=== PATIENT | male | born 1995 | race Two or more races ===

== ENCOUNTER 2017-08-30 15:30 | Inpatient (IN) | payer BC ==
[2017-08-30 15:34] VITALS: BMI 23.8
--- NOTE | 2017-08-30 16:12 | HP ---
COWS - Scale Resting Pulse: 1= [place] 81-100 Sweatin=Flushed/Facial Moisture Restless Observation: 3= Extraneous Movement Pupil Size: 2= Moderately Dilated Bone or Joint Aches: 2= Severe Diffuse Aches Runny Nose/ Eye Tearin= Runny Nose/Eyes GI Upset > 30mins: 3= Vomiting/Diarrhea Tremor Observation: 2= Slight Tremor Visible Yawning Observation: 2= >3x During Session Anxiety or Irritability: 2=Irritable/Anxious Goose Flesh Skin: 0=Smooth Skin COWS Score: 21 CIWA Score - CIWA Score Nausea/Vomitin Muscle Tremors: 3 Anxiety: 3 Agitation: 3 Paroxysmal Sweats: 2 Orientation: 0-Oriented Tacttile Disturbances: 2-Mild Itch/Numbness/Burn Auditory Disturbances: 2-Mild Harshness/Frighten Visual Disturbances: 2-Mild Sensitivity Headache: 2-Mild CIWA-Ar Total Score: 22 Admission ROS BHS - HPI Chief Complaint: i need help to stop using heroin,alcohol,xanax and cocaine Allergies/Adverse Reactions: Allergies Allergy/AdvReac Type Severity Reaction Status Date / Time Penicillins Allergy Verified 08/30/17 16:09 History of Present Illness: i need help to stop using heroin,xanax,alcohol and cocaine this 22 years old male with heroin,xanxa,cocaine and alcohol dependence,seeking detox,last treatment [facility] in 12/08 history of hepatitis c no treatment anxiety,depression,ptsd longest period of sobriety 5 years Exam Limitations: No Limitations - Ebola screening Have you traveled outside of the country in the last 21 days: No Have you had contact with anyone from an Ebola affected area: No Have you been sick,other than usual withdrawal symptoms: No Do you have a fever: No - Review of Systems Constitutional: Chills, Loss of Appetite, Malaise, Night Sweats, Changes in sleep, Weakness, Unintentional Wgt. Loss EENT: reports: Tearing, Nose Congestion Respiratory: reports: No Symptoms reported Cardiac: reports: Palpitations GI: reports: Diarrhea, Nausea, Vomiting, Abdominal cramping : reports: No Symptoms Reported Musculoskeletal: reports: Back Pain, Joint Pain, Muscle Pain, Joint Stiffness Integumentary: reports: Dryness Neuro: reports: Headache, Tremors Endocrine: reports: No Symptoms Reported Hematology: reports: No Symptoms Reported Psychiatric: reports: Anxious (ptsd), Depressed Patient History - Patient Medical History Hx Anemia: No Hx Asthma: No Hx Chronic Obstructive Pulmonary Disease (COPD): No Hx Cancer: No Hx Cardiac Disorders: No Hx Congestive Heart Failure: No Hx Hypertension: No Hx Hypercholesterolemia: No Hx Pacemaker: No HX Cerebrovascular Accident: No Hx Seizures: No Hx Dementia: No Hx Diabetes: No Hx Gastrointestinal Disorders: No Hx Liver Disease: No Hx Genitourinary Disorders: No Hx Sexually Transmitted Disorders: No Hx Renal Disease (ESRD): No Hx Thyroid Disease: No Hx Human Immunodeficiency Virus (HIV): No (unknown,never been tested before) Hx Hepatitis C: Yes (no treatent) Hx Depression: Yes (anxiety) Hx Suicide Attempt: No Hx Bipolar Disorder: No Hx Schizophrenia: No Other Medical History: insomnia,no siuicidal,no homicidal - Patient Surgical History Past Surgical History: No - PPD History Previous Implant?: Yes Documented Results: Negative w/o proof Implanted On Prior [facility] Admission?: No PPD to be Administered?: Yes - Smoking Cessation Smoking history: Current every day smoker Have you smoked in the past 12 months: Yes Aproximately how many cigarettes per day: 20 Hx Chewing Tobacco Use: No Initiated information on smoking cessation: Yes 'Breaking Loose' booklet given: 08/30/17 - Substance & Tx. History Hx Alcohol Use: Yes Hx Substance Use: Yes Substance Use Type: Alcohol, Cocaine, Heroin, Tranquilizers Hx Substance Use Treatment: Yes ([facility] 12/08) - Substances Abused Heroin Route: Injection Frequency: Daily Amount used: 25 to 30 bags/day Age of first use: 13 Date of Last Use: 08/30/17 Alprazolam (Xanax) Route: Oral Frequency: Daily Amount used: 6 to 8 mgs Age of first use: 13 Date of Last Use: 08/30/17 Alcohol Route: Oral Frequency: Daily Amount used: 1 pint of michelle/6 of 40 ozs of beer Age of first use: 6 Date of Last Use: 08/30/17 Cocaine Route: Injection Frequency: Daily Amount used: 100$ Age of first use: 13 Date of Last Use: 08/30/17 Family Disease History - Family Disease History Family History: Denies Admission Physical Exam BHS - Vital Signs Vital Signs: Vital Signs - 24 hr 08/30/17 15:33 Temperature 95.4 F L Pulse Rate 88 Respiratory 16 Rate Blood Pressure 111/66 - Physical General Appearance: Yes: Moderate Distress, Tremorous, Irritable, Sweating, Anxious HEENTM: Yes: Normocephalic, CON[place], Pharynx Normal Respiratory: Yes: Lungs Clear, Normal Breath Sounds, No Respiratory Distress Neck: Yes: Within Normal Limits, Supple, Trachea in good position Breast: Yes: Within Normal Limits Cardiology: Yes: Within Normal Limits, Regular Rhythm, Regular Rate, S1, S2 Abdominal: Yes: Within Normal Limits, Normal Bowel Sounds, Non Tender, Flat, Soft Genitourinary: Yes: Within Normal Limits Back: Yes: Normal Inspection, Muscle Spasm Musculoskeletal: Yes: Within Normal Limits, full range of Motion, Muscle Pain Extremities: Yes: Normal Range of Motion, Tremors Neurological: Yes: Within Normal Limits, sheriff sergeant II-XII NML intact, Fully Oriented, Alert, Motor Strength 5/5 Integumentary: Yes: Dry, Track Wagner Lymphatic: Yes: Within Normal Limits - Diagnostic (1) Opioid dependence with withdrawal Current Visit: Yes Status: Acute (2) Alcohol dependence with uncomplicated withdrawal Current Visit: Yes Status: Acute (3) Uncomplicated sedative, hypnotic or anxiolytic withdrawal Current Visit: Yes Status: Acute (4) Cocaine dependence Current Visit: Yes Status: Acute (5) Hepatitis C Current Visit: Yes Status: Acute (6) Insomnia secondary to depression with anxiety Current Visit: Yes Status: Acute (7) PTSD (post-traumatic stress disorder) Current Visit: Yes Status: Acute (8) ADHD Current Visit: Yes Status: Acute (9) Nicotine dependence Current Visit: Yes Status: Acute (10) Weight loss Current Visit: Yes Status: Acute Cleared for Admission [facility] - Detox or Rehab [facility] Level of Care: Medically Managed Detox Regimen/Protocol: Methadone/Valium [facility] Breath Alcohol Content Breath Alcohol Content: 0 Urine Drug Screen - Results Drug Screen Negative: No Urine Drug Screen Results: MONICA-Cocaine, OPI-Opiates, BZO-Benzodiazepines, OXY- Oxycodone
[2017-08-30] MEDS ORDERED: MENTHOL/PHENOL 1 EACH UD MM PRN (16:27)
[2017-08-30] MEDS ORDERED: ACETAMINOPHEN 325 MG TABLET (FP) PO PRN (16:27)
[2017-08-30] MEDS ORDERED: MAGNESIUM CITRATE 300 ML BOTTLE PO PRN (16:27)
[2017-08-30] MEDS ORDERED: MAGNESIUM HYDROX 2400MG/30ML ORAL SUSPENSION 30 ML CUP PO PRN (16:27)
[2017-08-30] MEDS ORDERED: MAG HYDROX/AL HYDROX/SIMETH 30 ML UNIT-DOSE CUP PO PRN (16:27)
[2017-08-30] MEDS ORDERED: diazePAM 5 MG TABLET PO ONE (16:27)
[2017-08-30] MEDS ORDERED: METHADONE HCL 10 MG TABLET (FOR DETOX USE ONLY) PO ONE ×2 (16:27→23:00)
[2017-08-30] MEDS ORDERED: hydrOXYzine PAMOATE 25 MG CAPSULE (FP) PO PRN (16:27)
[2017-08-30] MEDS ORDERED: P-EPHED 60MG/TRIPROLIDI 2.5MG TABLET PO PRN (16:27)
[2017-08-30] MEDS ORDERED: LOPERAMIDE HCL 2 MG CAPSULE PO PRN (16:27)
[2017-08-30] MEDS ORDERED: IBUPROFEN 400 MG TABLET (FP) PO PRN (16:27)
[2017-08-30] MEDS ORDERED: guaiFENesin/D-METHORPHAN HB 10 ML UNIT-DOSE CUPS PO PRN (16:27)
[2017-08-30] MEDS: NICOTINE 21 MG/24 HOURS TOPICAL PATCH TD SCH (18:29)
[2017-08-30] MEDS: THIAMINE HCL 100 MG TABLET (FP) PO SCH (22:21)
[2017-08-30] MEDS: diazePAM 5 MG TABLET PO SCH (22:22)
[2017-08-30] MEDS: NICOTINE POLACRILEX 2 MG GUM BC PRN (22:22)
[2017-08-30] MEDS: cloNIDine HCL 0.1 MG TABLET PO SCH (22:25)
[2017-08-31] MEDS: diazePAM 5 MG TABLET PO SCH ×3 (05:33→22:15)
[2017-08-31] MEDS: CYCLOBENZAPRINE HCL 10 MG TABLET (FP) PO PRN ×2 (05:33→22:16)
[2017-08-31] MEDS ORDERED: METHADONE HCL 10 MG TABLET (FOR DETOX USE ONLY) PO SCH (10:00)
[2017-08-31 10:04] LABS: URINE APPEARANCE CLEAR; URINE BILIRUBIN NEGATIVE (NEGATIVE); URINE BLOOD NEGATIVE (NEGATIVE); URINE COLOR AMBER; URINE GLUCOSE (UA) NEGATIVE (NEGATIVE); URINE KETONE NEGATIVE (NEGATIVE); URINE LEUK ESTERASE TRACE (NEGATIVE); URINE NITRITE NEGATIVE (NEGATIVE); URINE PROTEIN NEGATIVE (NEGATIVE); URINE UROBILINOGEN 4.0 E.U/dl mg/dL (0.2-1.0)
[2017-08-31 10:09] LABS: HEMATOCRIT 35.8 % (35.4-49); HEMOGLOBIN 11.9 GM/dL (11.7-16.9); MCH 31.4 pg (25.7-33.7); MCHC 33.2 g/dl (32.0-35.9); MEAN CELL VOLUME 94.6 fl (80-96); MEAN PLT VOLUME 8.2 fl (7.5-11.1); PLATELET COUNT 238 K/MM3 (134-434); RBC 3.78 M/mm3 (4.00-5.60); RDW 12.2 % (11.9-15.9); WHITE BLOOD COUNT 5.6 K/mm3 (4.0-10.0)
[2017-08-31 10:13] LABS: URINE MUCUS MANY
[2017-08-31 10:13] LABS: CHLORIDE 105 mmol/L (98-107); POTASSIUM 4.5 mmol/L (3.5-5.1); SODIUM 140 mmol/L (136-145)
[2017-08-31 10:22] LABS: ALBUMIN 3.3 g/dl (3.4-5.0); ALK PHOS 52 U/L (45-117); ANION GAP 6 (8-16); BILIRUBIN,TOTAL 0.6 mg/dL (0.2-1.0); BLOOD UREA NITROGEN 14 mg/dL (7-18); CALCIUM 8.8 mg/dL (8.5-10.1); CO2 29 mmol/L (21-32); CREATININE 0.8 mg/dL (0.7-1.3); GLUCOSE,RANDOM 93 mg/dL (74-106); SGOT/AST 24 U/L (15-37); SGPT/ALT 51 U/L (12-78); TOT PROT 6.8 g/dl (6.4-8.2)
[2017-08-31] MEDS: diazePAM 5 MG TABLET PO PRN ×2 (10:43→17:46)
[2017-08-31] MEDS: PRENATAL VITAMINS W/ FOLIC ACID TABLET (FP) PO SCH (10:43)
[2017-08-31] MEDS: NICOTINE 21 MG/24 HOURS TOPICAL PATCH TD SCH (10:43)
[2017-08-31] MEDS: cloNIDine HCL 0.1 MG TABLET PO SCH ×2 (10:43→22:15)
[2017-08-31] MEDS: NICOTINE POLACRILEX 2 MG GUM BC PRN ×4 (10:44→22:18)
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
--- NOTE | 2017-08-31 11:43 | PN ---
S CIWA - CIWA Score Nausea/Vomitin Muscle Tremors: 4-Moderate,w/Arms Extend Anxiety: 4-Mod. Anxious/Guarded Agitation: 4-Moderately Restless Paroxysmal Sweats: 3 Orientation: 0-Oriented Tacttile Disturbances: 0-None Auditory Disturbances: 0-None Visual Disturbances: 0-None Headache: 0-None Present CIWA-Ar Total Score: 18 BHS COWS - Scale Resting Pulse: 1= [place] 81-100 Sweatin= Chills/Flushing Restless Observation: 3= Extraneous Movement Pupil Size: 0= Normal to Room Light Bone or Joint Aches: 2= Severe Diffuse Aches Runny Nose/ Eye Tearin= Runny Nose/Eyes GI Upset > 30mins: 1= Stomach Cramp Tremor Observation of Outstretched Hands: 2= Slight Tremor Visible Yawning Observation: 0= None Anxiety or Irritability: 2=Irritable/Anxious Goose Flesh Skin: 0=Smooth Skin COWS Score: 14 BHS Progress Note (SOAP) Subjective: Stomach ache, nausea, tremor, sweating, interrupted sleep Objective: 08/31/17 11:39 Last Vital Signs Temp Pulse Resp BP Pulse Ox 96.6 F L 90 16 97/57 08/31/17 11:03 08/31/17 11:03 08/31/17 11:03 08/31/17 11:03 B/P:hypotension noted, asymptomatic (normal as per patient, stated his blood pressure usually runs on low side) Laboratory Tests 08/31/17 08/31/17 08/31/17 07:00 07:00 07:00 WBC 5.6 RBC 3.78 L Hgb 11.9 Hct 35.8 MCV 94.6 MCH 31.4 MCHC 33.2 RDW 12.2 Plt Count 238 MPV 8.2 Sodium 140 Potassium 4.5 Chloride 105 Carbon Dioxide 29 Anion Gap 6 L BUN 14 Creatinine 0.8 Creat Clearance w eGFR > 60 Random Glucose 93 Calcium 8.8 Total Bilirubin 0.6 AST 24 ALT 51 Alkaline Phosphatase 52 Total Protein 6.8 Albumin 3.3 L Urine Color Urine Appearance Urine pH Ur Specific [place] Urine Protein Urine Glucose (UA) Urine Ketones Urine Blood Urine Nitrite Urine Bilirubin Urine Urobilinogen Ur Leukocyte Esterase Urine WBC (Auto) Urine RBC (Auto) Urine Mucus RPR Titer Nonreactive 08/31/17 08:25 WBC RBC Hgb Hct MCV MCH MCHC RDW Plt Count MPV Sodium Potassium Chloride Carbon Dioxide Anion Gap BUN Creatinine Creat Clearance w eGFR Random Glucose Calcium Total Bilirubin AST ALT Alkaline Phosphatase Total Protein Albumin Urine Color Rocio Urine Appearance Clear Urine pH 6.0 Ur Specific [place] 1.028 Urine Protein Negative Urine Glucose (UA) Negative Urine Ketones Negative Urine Blood Negative Urine Nitrite Negative Urine Bilirubin Negative Urine Urobilinogen 4.0 e.u/dl Ur Leukocyte Esterase Trace Urine WBC (Auto) 1 Urine RBC (Auto) 11 Urine Mucus Many RPR Titer Labs noted Assessment: 08/31/17 11:41 Withdrawal symptoms Noted with hypotension Plan: Continue detox Hypotension: asymptomatic, encouraged to drink more water (water pitcher ordered ), continue to monitor
[2017-08-31] MEDS ORDERED: FLU VACCINE QUAD 60 MCG/0.5 ML (MDV 17-18) IM ONE (12:00)
--- NOTE | 2017-08-31 12:45 | EKG ---
Test Reason : Blood Pressure : / mmHG Vent. Rate : 086 BPM Atrial Rate : 086 BPM P-R Int : 152 ms QRS Dur : 080 ms QT Int : 354 ms P-R-T Axes : 053 085 040 degrees QTc Int : 423 ms NORMAL SINUS RHYTHM NORMAL ECG NO PREVIOUS ECGS AVAILABLE Confirmed by RUTH SPEAR MD ([id number]) on 08/31/2017 12:45:20 PM Referred By: Confirmed By:RUTH SPEAR MD
[2017-08-31] MEDS: THIAMINE HCL 100 MG TABLET (FP) PO SCH (22:14)
[2017-08-31] MEDS: ZOLPIDEM TARTRATE 10 MG TABLET (PARK CARE ONLY) PO PRN (22:15)
[2017-09-01] MEDS: diazePAM 5 MG TABLET PO SCH ×2 (10:49→22:09)
[2017-09-01] MEDS: cloNIDine HCL 0.1 MG TABLET PO SCH ×2 (10:49→22:10)
[2017-09-01] MEDS: PRENATAL VITAMINS W/ FOLIC ACID TABLET (FP) PO SCH (10:49)
[2017-09-01] MEDS: METHADONE HCL 5 MG TABLET (FOR DETOX USE ONLY) PO SCH (10:49)
[2017-09-01] MEDS: NICOTINE 21 MG/24 HOURS TOPICAL PATCH TD SCH (10:50)
[2017-09-01] MEDS: NICOTINE POLACRILEX 2 MG GUM BC PRN ×3 (10:50→22:11)
--- NOTE | 2017-09-01 12:31 | PN ---
[facility] CIWA - CIWA Score Nausea/Vomitin Muscle Tremors: 3 Anxiety: 4-Mod. Anxious/Guarded Agitation: 4-Moderately Restless Paroxysmal Sweats: 3 Orientation: 0-Oriented Tacttile Disturbances: 1-Very Mild Itch/Numbness Auditory Disturbances: 0-None Visual Disturbances: 0-None Headache: 0-None Present CIWA-Ar Total Score: 18 S COWS - Scale Resting Pulse: 1= [place] 81-100 Sweatin= Chills/Flushing Restless Observation: 3= Extraneous Movement Pupil Size: 0= Normal to Room Light Bone or Joint Aches: 1= Mild Discomfort Runny Nose/ Eye Tearin= Nasal Congestion GI Upset > 30mins: 1= Stomach Cramp Tremor Observation of Outstretched Hands: 2= Slight Tremor Visible Yawning Observation: 1= 1-2x During Session Anxiety or Irritability: 2=Irritable/Anxious Goose Flesh Skin: 0=Smooth Skin COWS Score: 13 [facility] Progress Note (SOAP) Subjective: Nausea, sweating, tremor, anxious Objective: 09/01/17 12:30 Last Vital Signs Temp Pulse Resp BP Pulse Ox 97.5 F L 83 16 110/58 09/01/17 10:00 09/01/17 10:00 09/01/17 10:00 09/01/17 10:00 Laboratory Tests 08/31/17 08/31/17 08/31/17 07:00 07:00 07:00 WBC 5.6 RBC 3.78 L Hgb 11.9 Hct 35.8 MCV 94.6 MCH 31.4 MCHC 33.2 RDW 12.2 Plt Count 238 MPV 8.2 Sodium 140 Potassium 4.5 Chloride 105 Carbon Dioxide 29 Anion Gap 6 L BUN 14 Creatinine 0.8 Creat Clearance w eGFR > 60 Random Glucose 93 Calcium 8.8 Total Bilirubin 0.6 AST 24 ALT 51 Alkaline Phosphatase 52 Total Protein 6.8 Albumin 3.3 L Urine Color Urine Appearance Urine pH Ur Specific [place] Urine Protein Urine Glucose (UA) Urine Ketones Urine Blood Urine Nitrite Urine Bilirubin Urine Urobilinogen Ur Leukocyte Esterase Urine WBC (Auto) Urine RBC (Auto) Urine Mucus RPR Titer Nonreactive 08/31/17 08:25 WBC RBC Hgb Hct MCV MCH MCHC RDW Plt Count MPV Sodium Potassium Chloride Carbon Dioxide Anion Gap BUN Creatinine Creat Clearance w eGFR Random Glucose Calcium Total Bilirubin AST ALT Alkaline Phosphatase Total Protein Albumin Urine Color Rocio Urine Appearance Clear Urine pH 6.0 Ur Specific [place] 1.028 Urine Protein Negative Urine Glucose (UA) Negative Urine Ketones Negative Urine Blood Negative Urine Nitrite Negative Urine Bilirubin Negative Urine Urobilinogen 4.0 e.u/dl Ur Leukocyte Esterase Trace Urine WBC (Auto) 1 Urine RBC (Auto) 11 Urine Mucus Many RPR Titer Labs noted Assessment: 09/01/17 12:30 Withdrawal symptoms Plan: Continue detox
[2017-09-01] MEDS: diazePAM 5 MG TABLET PO PRN ×2 (13:58→18:03)
[2017-09-01] MEDS: CYCLOBENZAPRINE HCL 10 MG TABLET (FP) PO PRN ×2 (13:58→22:10)
[2017-09-01] MEDS: THIAMINE HCL 100 MG TABLET (FP) PO SCH (22:10)
[2017-09-01] MEDS: ZOLPIDEM TARTRATE 10 MG TABLET (PARK CARE ONLY) PO PRN (22:10)
[2017-09-02] MEDS: NICOTINE 21 MG/24 HOURS TOPICAL PATCH TD SCH (10:35)
[2017-09-02] MEDS: diazePAM 5 MG TABLET PO SCH ×2 (10:35→22:11)
[2017-09-02] MEDS: METHADONE HCL 5 MG TABLET (FOR DETOX USE ONLY) PO SCH (10:35)
[2017-09-02] MEDS: PRENATAL VITAMINS W/ FOLIC ACID TABLET (FP) PO SCH (10:35)
[2017-09-02] MEDS: cloNIDine HCL 0.1 MG TABLET PO SCH (10:37)
[2017-09-02] MEDS: NICOTINE POLACRILEX 2 MG GUM BC PRN ×2 (13:23→22:13)
--- NOTE | 2017-09-02 13:53 | PN ---
BHS Progress Note (SOAP) Subjective: ANXIETY,HOT/COLD FLASHES,STOMACH CRAMPS,NIGHT SWEATS. Objective: 09/02/17 13:53 Vital Signs Temperature 95.8 F L 09/02/17 13:10 Pulse Rate 84 09/02/17 13:10 Respiratory Rate 18 09/02/17 13:10 Blood Pressure 92/63 09/02/17 13:10 O2 Sat by Pulse Oximetry (%) Laboratory Last Values WBC 5.6 K/mm3 (4.0-10.0) 08/31/17 07:00 RBC 3.78 M/mm3 (4.00-5.60) L 08/31/17 07:00 Hgb 11.9 GM/dL (11.7-16.9) 08/31/17 07:00 Hct 35.8 % (35.4-49) 08/31/17 07:00 MCV 94.6 fl (80-96) 08/31/17 07:00 MCH 31.4 pg (25.7-33.7) 08/31/17 07:00 MCHC 33.2 g/dl (32.0-35.9) 08/31/17 07:00 RDW 12.2 % (11.9-15.9) 08/31/17 07:00 Plt Count 238 K/MM3 (134-434) 08/31/17 07:00 MPV 8.2 fl (7.5-11.1) 08/31/17 07:00 Sodium 140 mmol/L (136-145) 08/31/17 07:00 Potassium 4.5 mmol/L (3.5-5.1) 08/31/17 07:00 Chloride 105 mmol/L (98-107) 08/31/17 07:00 Carbon Dioxide 29 mmol/L (21-32) 08/31/17 07:00 Anion Gap 6 (8-16) L 08/31/17 07:00 BUN 14 mg/dL (7-18) 08/31/17 07:00 Creatinine 0.8 mg/dL (0.7-1.3) 08/31/17 07:00 Creat Clearance w eGFR > 60 (>60) 08/31/17 07:00 Random Glucose 93 mg/dL (74-106) 08/31/17 07:00 Calcium 8.8 mg/dL (8.5-10.1) 08/31/17 07:00 Total Bilirubin 0.6 mg/dL (0.2-1.0) 08/31/17 07:00 AST 24 U/L (15-37) 08/31/17 07:00 ALT 51 U/L (12-78) 08/31/17 07:00 Alkaline Phosphatase 52 U/L (45-117) 08/31/17 07:00 Total Protein 6.8 g/dl (6.4-8.2) 08/31/17 07:00 Albumin 3.3 g/dl (3.4-5.0) L 08/31/17 07:00 Urine Color Rocio 08/31/17 08:25 Urine Appearance Clear 08/31/17 08:25 Urine pH 6.0 (5.0-8.0) 08/31/17 08:25 Ur Specific [place] 1.028 (1.001-1.035) 08/31/17 08:25 Urine Protein Negative (NEGATIVE) 08/31/17 08:25 Urine Glucose (UA) Negative (NEGATIVE) 08/31/17 08:25 Urine Ketones Negative (NEGATIVE) 08/31/17 08:25 Urine Blood Negative (NEGATIVE) 08/31/17 08:25 Urine Nitrite Negative (NEGATIVE) 08/31/17 08:25 Urine Bilirubin Negative (NEGATIVE) 08/31/17 08:25 Urine Urobilinogen 4.0 e.u/dl mg/dL (0.2-1.0) 08/31/17 08:25 Ur Leukocyte Esterase Trace (NEGATIVE) 08/31/17 08:25 Urine WBC (Auto) 1 /hpf (3-5) 08/31/17 08:25 Urine RBC (Auto) 11 /hpf (0-3) 08/31/17 08:25 Urine Mucus Many 08/31/17 08:25 RPR Titer Nonreactive (NONREACTIVE) 08/31/17 07:00 Assessment: 09/02/17 13:53 WITHDRAWAL SX Plan: CONTINUE DETOX
[2017-09-02] MEDS: diazePAM 5 MG TABLET PO PRN (14:05)
[2017-09-02] MEDS: THIAMINE HCL 100 MG TABLET (FP) PO SCH (22:11)
[2017-09-02] MEDS: ZOLPIDEM TARTRATE 10 MG TABLET (PARK CARE ONLY) PO PRN (22:11)
[2017-09-02] MEDS: CYCLOBENZAPRINE HCL 10 MG TABLET (FP) PO PRN (22:12)
[2017-09-03] MEDS ORDERED: diazePAM 5 MG TABLET PO SCH (10:00)
[2017-09-03] MEDS ORDERED: METHADONE HCL 10 MG TABLET (FOR DETOX USE ONLY) PO SCH (10:00)
[2017-09-03] MEDS: PRENATAL VITAMINS W/ FOLIC ACID TABLET (FP) PO SCH (10:29)
[2017-09-03] MEDS: NICOTINE 21 MG/24 HOURS TOPICAL PATCH TD SCH (10:29)
--- NOTE | 2017-09-03 11:54 | PN ---
BHS Progress Note (SOAP) Subjective: Night sweats, hot and cold flashes, anxiety, fatigue Objective: 09/03/17 11:53 Last Vital Signs Temp Pulse Resp BP Pulse Ox 98.0 F 87 18 121/61 09/03/17 09:32 09/03/17 09:32 09/03/17 09:32 09/03/17 09:32 Laboratory Last Values WBC 5.6 K/mm3 (4.0-10.0) 08/31/17 07:00 RBC 3.78 M/mm3 (4.00-5.60) L 08/31/17 07:00 Hgb 11.9 GM/dL (11.7-16.9) 08/31/17 07:00 Hct 35.8 % (35.4-49) 08/31/17 07:00 MCV 94.6 fl (80-96) 08/31/17 07:00 MCH 31.4 pg (25.7-33.7) 08/31/17 07:00 MCHC 33.2 g/dl (32.0-35.9) 08/31/17 07:00 RDW 12.2 % (11.9-15.9) 08/31/17 07:00 Plt Count 238 K/MM3 (134-434) 08/31/17 07:00 MPV 8.2 fl (7.5-11.1) 08/31/17 07:00 Sodium 140 mmol/L (136-145) 08/31/17 07:00 Potassium 4.5 mmol/L (3.5-5.1) 08/31/17 07:00 Chloride 105 mmol/L (98-107) 08/31/17 07:00 Carbon Dioxide 29 mmol/L (21-32) 08/31/17 07:00 Anion Gap 6 (8-16) L 08/31/17 07:00 BUN 14 mg/dL (7-18) 08/31/17 07:00 Creatinine 0.8 mg/dL (0.7-1.3) 08/31/17 07:00 Creat Clearance w eGFR > 60 (>60) 08/31/17 07:00 Random Glucose 93 mg/dL (74-106) 08/31/17 07:00 Calcium 8.8 mg/dL (8.5-10.1) 08/31/17 07:00 Total Bilirubin 0.6 mg/dL (0.2-1.0) 08/31/17 07:00 AST 24 U/L (15-37) 08/31/17 07:00 ALT 51 U/L (12-78) 08/31/17 07:00 Alkaline Phosphatase 52 U/L (45-117) 08/31/17 07:00 Total Protein 6.8 g/dl (6.4-8.2) 08/31/17 07:00 Albumin 3.3 g/dl (3.4-5.0) L 08/31/17 07:00 Urine Color Rocio 08/31/17 08:25 Urine Appearance Clear 08/31/17 08:25 Urine pH 6.0 (5.0-8.0) 08/31/17 08:25 Ur Specific [place] 1.028 (1.001-1.035) 08/31/17 08:25 Urine Protein Negative (NEGATIVE) 08/31/17 08:25 Urine Glucose (UA) Negative (NEGATIVE) 08/31/17 08:25 Urine Ketones Negative (NEGATIVE) 08/31/17 08:25 Urine Blood Negative (NEGATIVE) 08/31/17 08:25 Urine Nitrite Negative (NEGATIVE) 08/31/17 08:25 Urine Bilirubin Negative (NEGATIVE) 08/31/17 08:25 Urine Urobilinogen 4.0 e.u/dl mg/dL (0.2-1.0) 08/31/17 08:25 Ur Leukocyte Esterase Trace (NEGATIVE) 08/31/17 08:25 Urine WBC (Auto) 1 /hpf (3-5) 08/31/17 08:25 Urine RBC (Auto) 11 /hpf (0-3) 08/31/17 08:25 Urine Mucus Many 08/31/17 08:25 RPR Titer Nonreactive (NONREACTIVE) 08/31/17 07:00 Labs noted Assessment: 09/03/17 11:53 withdrawal symptoms Plan: Continue Detox Increase fluids for hydration as needed Continue to monitor
[2017-09-03] MEDS: NICOTINE POLACRILEX 2 MG GUM BC PRN ×2 (13:43→22:08)
[2017-09-03] MEDS: ZOLPIDEM TARTRATE 10 MG TABLET (PARK CARE ONLY) PO PRN (21:53)
[2017-09-03] MEDS: CYCLOBENZAPRINE HCL 10 MG TABLET (FP) PO PRN (22:08)
[2017-09-03] MEDS: THIAMINE HCL 100 MG TABLET (FP) PO SCH (22:08)
[2017-09-03 23:13] LABS: URINE APPEARANCE TURBID; URINE BILIRUBIN NEGATIVE (NEGATIVE); URINE BLOOD NEGATIVE (NEGATIVE); URINE COLOR AMBER; URINE GLUCOSE (UA) NEGATIVE (NEGATIVE); URINE KETONE NEGATIVE (NEGATIVE); URINE LEUK ESTERASE TRACE (NEGATIVE); URINE NITRITE NEGATIVE (NEGATIVE); URINE PROTEIN NEGATIVE (NEGATIVE); URINE UROBILINOGEN NEGATIVE mg/dL (0.2-1.0)
[2017-09-04 00:25] LABS: EPI CELLS RARE /HPF (FEW); URINE BACTERIA RARE /hpf (NONE SEEN); URINE MUCUS RARE
[2017-09-04] MEDS: CYCLOBENZAPRINE HCL 10 MG TABLET (FP) PO PRN (05:49)
[2017-09-04] MEDS ORDERED: METHADONE HCL 5 MG TABLET (FOR DETOX USE ONLY) PO SCH (06:00)
[2017-09-04 10:19] VITALS: BP 107/66; PULSE 86; TEMP 98.1
--- NOTE | 2017-09-04 10:55 | DS ---
[facility] Detox Discharge Summary Admission Date: 08/30/17 Discharge Date: 09/04/17 - History Present History: Alcohol Dependence, Cocaine Dependence, Opioid Dependence Pertinent Past History: Hepatitis C - Physical Exam Results Vital Signs: Vital Signs Temperature 98.1 F 09/04/17 10:17 Pulse Rate 86 09/04/17 10:17 Respiratory Rate 16 09/04/17 10:17 Blood Pressure 107/66 09/04/17 10:17 O2 Sat by Pulse Oximetry (%) Pertinent Admission Physical Exam Findings: Withdrawal symptoms Laboratory Tests 08/31/17 08/31/17 08/31/17 07:00 07:00 07:00 WBC 5.6 RBC 3.78 L Hgb 11.9 Hct 35.8 MCV 94.6 MCH 31.4 MCHC 33.2 RDW 12.2 Plt Count 238 MPV 8.2 Sodium 140 Potassium 4.5 Chloride 105 Carbon Dioxide 29 Anion Gap 6 L BUN 14 Creatinine 0.8 Creat Clearance w eGFR > 60 Random Glucose 93 Calcium 8.8 Total Bilirubin 0.6 AST 24 ALT 51 Alkaline Phosphatase 52 Total Protein 6.8 Albumin 3.3 L Urine Color Urine Appearance Urine pH Ur Specific [place] Urine Protein Urine Glucose (UA) Urine Ketones Urine Blood Urine Nitrite Urine Bilirubin Urine Urobilinogen Ur Leukocyte Esterase Urine WBC (Auto) Urine RBC (Auto) Ur Epithelial Cells Urine Bacteria Urine Mucus RPR Titer Nonreactive 08/31/17 09/03/17 08:25 21:00 WBC RBC Hgb Hct MCV MCH MCHC RDW Plt Count MPV Sodium Potassium Chloride Carbon Dioxide Anion Gap BUN Creatinine Creat Clearance w eGFR Random Glucose Calcium Total Bilirubin AST ALT Alkaline Phosphatase Total Protein Albumin Urine Color [place] Urine Appearance Clear Turbid Urine pH 6.0 5.0 Ur Specific [place] 1.028 1.021 Urine Protein Negative Negative Urine Glucose (UA) Negative Negative Urine Ketones Negative Negative Urine Blood Negative Negative Urine Nitrite Negative Negative Urine Bilirubin Negative Negative Urine Urobilinogen 4.0 e.u/dl Negative Ur Leukocyte Esterase Trace Trace Urine WBC (Auto) 1 2 Urine RBC (Auto) 11 1 Ur Epithelial Cells Rare Urine Bacteria Rare Urine Mucus Many Rare RPR Titer Labs noted - Treatment Hospital Course: Detox Protocol Followed, Detoxed Safely, Responded well, Discharged Condition Good - Medication Discharge Medications: Ambulatory Orders Diazepam [Valium] PO TID 10/16/11 TraZODone HCL 50 mg PO HS 10/16/11 NK [No Known Home Medication] 08/30/17 - Diagnosis (1) Opioid dependence with withdrawal Status: Acute (2) Alcohol dependence with uncomplicated withdrawal Status: Acute (3) Cocaine dependence Status: Chronic (4) Hepatitis C Status: Chronic Qualifiers: Viral hepatitis chronicity: chronic (5) PTSD (post-traumatic stress disorder) Status: Chronic (6) Nicotine dependence Status: Acute Qualifiers: Nicotine product type: cigarettes Substance use status: in withdrawal Qualified Code(s): F17.213 - Nicotine dependence, cigarettes, with withdrawal (7) Insomnia Status: Acute - AMA Did Patient Leave Against Medical Advice: No (F/U with PCP within 1 week)
== END 2017-09-04 10:39 | disposition home or self-care (01) | DRG 773 ==
LOC: YASAS 15:30 → MERGE 16:32 → Y3N 16:32
PROVIDERS: ADMIT Internal Medicine; ATTEND Internal Medicine
PROC: HZ2ZZZZ Detoxification Services for Substance Abuse Treatment (ICD-10-PCS; principal; 2017-08-30)
DX: F11.23 Opioid dependence with withdrawal (principal); F10.230 Alcohol dependence with withdrawal, uncomplicated; F14.20 Cocaine dependence, uncomplicated; F17.213 Nicotine dependence, cigarettes, with withdrawal; F19.24 Other psychoactive substance dependence with psychoactive substance-induced mood disorder; F43.10 Post-traumatic stress disorder, unspecified; G47.00 Insomnia, unspecified; B18.2 Chronic viral hepatitis C; F41.8 Other specified anxiety disorders
CPT/HCPCS: 36415; 80053; 81003; 81015; 85027; 86593; 90688; 93005; 93010